=== PATIENT | female | born 1985 | race Caucasian/White ===

== ENCOUNTER 2025-01-10 01:05 | Emergency (ER) | payer OTHER ==
[~2025-01-10] VITALS: Ht 167.6 cm; Wt 60.0 kg
[2025-01-10 01:31] VITALS: BP 122/74; PULSE 74; RESP 20; TEMP 98.4; O2SAT 100
[2025-01-10] MEDS: ACETAMINOPHEN 325 MG TABLET PO ONE (01:33)
== END 2025-01-10 02:04 ==
LOC: EMS 01:14
DX: T16.1XXA Foreign body in right ear, initial encounter (principal); W44.9XXA Unspecified foreign body entering into or through a natural orifice, initial encounter; Y93.89 Activity, other specified; Y92.89 Other specified places as the place of occurrence of the external cause; Y99.8 Other external cause status
CPT/HCPCS: 69200; 99284; Z7502; Z7610